=== PATIENT | male | born 1970 | race Caucasian/White ===

== ENCOUNTER 2022-05-06 22:36 | Emergency (ER) | payer SELFPAY ==
[2022-05-07] MEDS ORDERED: Acetaminophen 500 MG TAB ONE (01:21)
[2022-05-07] MEDS ORDERED: Boostrix 0.5 ML (Tdap) VIAL (>/=7 yrs of age) ONE (03:18)
[2022-05-07] MEDS ORDERED: Ketorolac Tromethamine 30 MG/ML VIAL ONE (03:18)
== END 2022-05-07 03:37 | disposition home or self-care (01) ==
LOC: ERS 22:36
DX: S43.102A Unspecified dislocation of left acromioclavicular joint, initial encounter (principal); S80.212A Abrasion, left knee, initial encounter; F79 Unspecified intellectual disabilities; Z23 Encounter for immunization; W18.30XA Fall on same level, unspecified, initial encounter; Y93.02 Activity, running
CPT/HCPCS: 73050; 90471; 90715; 96372; J1885